=== PATIENT | male | born 1975 | race Caucasian/White ===

== ENCOUNTER 2024-06-18 05:46 | Day surgery (SDC) | payer SELFPAY ==
[2024-06-18] VITALS (10 sets, daily range): BP systolic 96–134; BP diastolic 63–92; PULSE 65–86; RESP 16–19; TEMP 36.2–36.7; O2SAT 94–100
[2024-06-18] MEDS: sodium chloride 0.9% 1,000 ML 30 ML IV (06:20)
--- NOTE | 2024-06-18 06:42 | ANES.PREANE2 ---
Pre-Anesthetic Assessment Height/Weight: Height 1.7 m Weight 76.657 kg Temp Pulse Resp BP Pulse Ox O2 Del Method 98.1 F 85 16 128/92 99 Room Air 06/18/24 06:01 06/18/24 06:01 06/18/24 06:01 06/18/24 06:01 06/18/24 06:01 06/18/24 06:01 Operation Date: 06/18/24 07:00 Proposed Procedures p Inguinal Hernia Repair Open Inguinal Hernia Repair w/ Mesh [id number],K40.90(Right) - Dani Hwang MD Familial anesthetic complications: None Was Beta Kalli taken within 24 hours: N/A Was Clonidine taken within 24 hours: N/A Last intake: Intake Last Liquid Date 06/17/24 Last Liquid Time 20:30 Last Solid Date 06/17/24 Last Solid Time 20:30 Social No alcohol and No tobacco Exam alert, oriented x 3, clear to auscultation bilaterally and regular rate & rhythm Airway Mallampati: Class I Dentition: chipped (1 in back, almost gone) Anesthetic Plan ASA status: 1 Anesthesia: General Risk of > 500 ml blood loss (7ml/kg in children): No Medications/Allergies Home Medications Medication Instructions Recorded Confirmed Last Taken Type No Known Home Medications 04/04/24 06/18/24 Unknown History Allergies Allergy/AdvReac Type Severity Reaction Status Date / Time No Known Allergies Allergy Verified 06/17/24 10:43 Current Medications Generic Name Dose Route Start Last Admin Trade Name Freq PRN Reason Stop Dose Admin Sodium Chloride 1,000 mls @ 30 mls/hr 06/18/24 06:00 06/18/24 06:20 Sodium Chloride 0.9% IV 06/19/24 05:59 30 mls/hr .Q24H CLARKE Administration PFSH Anesthesia Family History Father Heart disease Diabetes Grandfather Heart disease Grandmother Heart disease Social History Smoking and tobacco/nicotine status: former use of tobacco/nicotine Quit status (tobacco/nicotine): has quit using Year quit tobacco: 2013 Alcohol intake: never Substance/Drug Use: never Adopted: No Caregiver/support person: No Lives independently: No Household members: spouse Marital status: service: No Current occupational status: employed Sexually active: Yes Do you think of yourself as: Straight/Heterosexual Current gender identity: Male Data Anesthesia Cardiac Studies: No Data to Display
--- NOTE | 2024-06-18 06:59 | W.PM.OPSFHP ---
Same Day Surgery H&P Indication for Procedure/HPI DATE OF PROCEDURE: June 18, 2024 CHIEF COMPLAINT/INDICATIONFOR SURGICAL PROCEDURE: Right inguinal hernia PREOP DIAGNOSIS: Right inguinal hernia PLANNED PROCEDURE: Operation Date: 06/18/24 07:00 Proposed Procedures p Inguinal Hernia Repair Open Inguinal Hernia Repair w/ Mesh [id number],K40.90(Right) - Dani Hwang MD Medications/Allergies* Home Medications Medication Instructions Recorded Confirmed Type No Known Home Medications 04/04/24 06/18/24 History Allergies/Adverse Reactions Allergy/AdvReac Type Severity Reaction Status Date / Time No Known Allergies Allergy Verified 06/17/24 10:43 Current Medications: Generic Name Dose Route Start Last Admin Trade Name Freq PRN Reason Stop Dose Admin Sodium Chloride 1,000 mls @ 30 mls/hr 06/18/24 06:00 06/18/24 06:20 Sodium Chloride 0.9% IV 06/19/24 05:59 30 mls/hr .Q24H [facility]KE Administration Pertinent History/Comorbid Conditions* Family History (Updated 04/04/24 @ 13:18 by Latha Taylor LPN) Diabetes Father Heart disease Father Grandfather Grandmother Social History Smoking and tobacco/nicotine status: former use of tobacco/nicotine Quit status (tobacco/nicotine): has quit using Year quit tobacco: 2013 Alcohol intake: never Substance/Drug Use: never Adopted: No Caregiver/support person: No Lives independently: No Household members: spouse Marital status: service: No Current occupational status: employed Sexually active: Yes Do you think of yourself as: Straight/Heterosexual Current gender identity: Male Pertinent Exam Findings alert, oriented x 3, clear to auscultation bilaterally, regular rate & rhythm, operative site marked and procedure specific exam findings Right inguinal hernia soft, reducible. Recommendations Surgery/Procedure today Other Plans: Right inguinal hernia repair Coding Level of Care Code Acute Code for Chg Fwd
[2024-06-18] MEDS: ceFAZolin 2,000 mg SDV 2000 MG IVP (07:27)
[2024-06-18] MEDS: BUPivacaine 0.25% INJ 10 mL INJECTION (08:12)
[2024-06-18] MEDS: lidocaine-epi 1% 20 mL INJ INJECTION (08:13)
--- NOTE | 2024-06-18 09:28 | P.OP_ITS ---
Date of Procedure: 06/18/2024 Surgeon: Dr. Hwang Pigs Feet Cleaner(s): None Procedure(s) performed: Right inguinal hernia repair with mesh (plug and patch size large) Findings of the procedure(s): Large right direct and indirect inguinal hernia Estimated blood loss: 20 cc Specimen(s) removed: None Post-operative diagnosis: Right direct and indirect inguinal hernia Pathology: None Implant(s): Plug and patch mesh size large Anesthesia: General Anesthesia Complications: None Brief history/preop diagnosis: 49-year-old male who presented with a large right inguinal hernia. Patient was complaining of intermittent pain. Discussed risk and benefits of right inguinal hernia repair with mesh and patient agreed to proceed. Full operative report: Patient brought to the OR and placed supine on the table. SCDs were placed and functioning. Preoperative ancef was administered. General anesthesia was induced. A lin catheter was placed without any complications. The right groin was prepped and draped in the usual sterile fashion. Local infiltration at the surgical site was done using lidocaine/bupivacaine with epinephrine. A 7cm incision was carried out over the right inguinal canal. Tissue dissection was carried down to the external oblique fascia using electrocautery. The fascia was incised and the cord structures were identified. Cord structures were dissected of the hernia sac. I identified a large indirect as well as a large direct inguinal hernia. The hernia sacs were dissected and reduced into the abdomen. The plug was placed at the site of the deep inguinal ring and the posterior wall of the inguinal canal was reinforced using a mesh patch. The plug was fixed using 2-0 ethibond to the cojoint ligament and inguinal ligament with interrupted sutures. The mesh patch was sutured to the cojoint tendon and the inguinal ligament using interrupted sutures with 2-0 ethibond. The external oblique fascia was closed using 3-0 vicryl. Skin was closed using 4-0 monocryl and surgical glue. Lin was removed. The patient woke up from anesthesia and was transferred to PACU without any complications. Condition: Stable Dispostion: Home
--- NOTE | 2024-06-18 10:16 | SUR.PHASEI ---
1015 Pt rates pain at an 8 but declines pain medication at this time.
[2024-06-18] MEDS: oxyCODONE 5 mg IR Tab/Cap PO (10:26)
[2024-06-18] MEDS: ondansetron 2 mg/ML SDV 2 mL 4 MG IVP (10:30)
--- NOTE | 2024-06-18 11:25 | ANE.PACU2 ---
Inpatient post-anesthesia follow up: Airway intact: Yes Vital signs: Temperature 97.1 F Pulse Rate 86 Respiratory Rate 18 Blood Pressure 126/74 Pulse Oximetry 95 Oxygen Delivery Me thod Room Air Oxygen Flow Rate 6 Fraction of Inspir ed Oxygen Hydration adequate: Yes Nausea and vomiting: No Pain level: 1 Mental status: Baseline
== END 2024-06-18 11:20 | disposition home or self-care (01) ==
PROVIDERS: PCP Registered Nurse; Visit Provider Student in an Organized Health Care Education/Training Program
PROC: (CPT 49505; principal; 2024-06-18 07:00)
DX: K40.90 Unilateral inguinal hernia, without obstruction or gangrene, not specified as recurrent (principal); Z87.891 Personal history of nicotine dependence
CPT/HCPCS: 49505; 51702; C1781; J0690; J1100; J2250; J2405; J2704; J3010; J3490; J7030